=== PATIENT | female | born 1935 | race Caucasian/White ===

== ENCOUNTER → 2017-10-05 | Outpatient (CLI) | payer OTHER | LOC: M.CT 09-29 10:39 → M.MRI 07:01 | DX: M25.78 Osteophyte, vertebrae (principal); M51.25 Other intervertebral disc displacement, thoracolumbar region; M51.36 Other intervertebral disc degeneration, lumbar region; M47.896 Other spondylosis, lumbar region; N30.00 Acute cystitis without hematuria; R19.09 Other intra-abdominal and pelvic swelling, mass and lump; Z98.890 Other specified postprocedural states ==

== ENCOUNTER → 2017-10-05 | Outpatient (CLI) | payer OTHER | LOC: M.CT 09:52 | DX: K40.90 Unilateral inguinal hernia, without obstruction or gangrene, not specified as recurrent (principal); N30.00 Acute cystitis without hematuria; R19.09 Other intra-abdominal and pelvic swelling, mass and lump; M41.86 Other forms of scoliosis, lumbar region; M47.896 Other spondylosis, lumbar region ==